=== PATIENT | male | born 1935 | race African-American/Black ===

== ENCOUNTER 2018-12-27 16:05 | Emergency (ER) | payer BC, MEDICAID ==
[~2018-12-27] VITALS: Ht 172.7 cm; Wt 69.0 kg
[2018-12-27] MEDS ORDERED: SODIUM CHLORIDE 0.9% 1,000 ML IV ONE (18:38)
[2018-12-27 19:07] LABS: BASOPHILS % 0.5 % (0.0-2.0); EOSINOPHILS % 2.4 % (0.0-5.0); HEMATOCRIT. 31.6 % (42.0-52.0); HEMOGLOBIN. 10.5 g/dL (14.0-18.0); LYMPHOCYTES % 17.3 % (20.0-50.0); MEAN CORPUSCULAR HEMOGLOBIN 31.2 pg (28.0-32.0); MEAN CORPUSCULAR VOLUME 93.7 fL (80.0-94.0); MEAN PLATELET VOLUME 6.3 fl (7.4-10.4); MONOCYTES % 7.1 % (2.0-8.0); NEUTROPHILS % 72.7 % (40.0-76.0); PLATELET 209 x1000/uL (130-400); RED BLOOD CELL COUNT 3.37 mill/uL (4.7-6.1); RED CELL DISTRIBUTION WIDTH 14.5 % (11.6-14.6)
[2018-12-27 19:09] LABS: CHLORIDE 106 mEq/L (98-107); INR 1.1
[2018-12-27 20:16] LABS: CLARITY URINE CLEAR (CLEAR); COLOR URINE YELLOW (YELLOW); KETONES URINE NEGATIVE (NEGATIVE); LEUKOCYTE ESTERASE URINE NEGATIVE (NEGATIVE); NITRITE URINE NEGATIVE (NEGATIVE); OCCULT BLOOD URINE NEGATIVE (NEGATIVE); PROTEIN URINE NEGATIVE (NEGATIVE)
[2018-12-27 21:15] VITALS: BP 100/70
== END 2018-12-27 21:15 | disposition home or self-care (01) ==
LOC: ER 16:05 → CANBEDREQ 12-28 00:30
DX: R55 Syncope and collapse (principal); E86.0 Dehydration; N28.9 Disorder of kidney and ureter, unspecified; F03.90 Unspecified dementia, unspecified severity, without behavioral disturbance, psychotic disturbance, mood disturbance, and anxiety; E11.9 Type 2 diabetes mellitus without complications
CPT/HCPCS: 36415; 70450; 71045; 80053; 81003; 82962; 85025; 85610; 93005; 99284; J7030

== ENCOUNTER 2021-07-27 14:41 | Inpatient (IN) | payer OTHER, MEDICAID ==
[~2021-07-27] VITALS: Ht 180.3 cm; Wt 79.5 kg
[~2021-07-27 14:41] MED LIST: HYDR-4009 PO; KETO5DRO80 EACHEYE
[2021-07-27] MEDS ORDERED: SODIUM CHLORIDE 0.9% 500 ML IV ONE (16:15)
[2021-07-27 16:23] LABS: BASOPHILS % 0.7 % (0.0-2.0); EOSINOPHILS % 4.8 % (0.0-5.0); HEMATOCRIT. 29.3 % (42.0-52.0); HEMOGLOBIN. 9.9 g/dL (14.0-18.0); MEAN CORPUSCULAR HEMOGLOBIN 31.7 pg (28.0-32.0); MEAN CORPUSCULAR VOLUME 93.4 fL (80.0-94.0); MEAN PLATELET VOLUME 6.6 fl (7.4-10.4); MONOCYTES % 12.7 % (2.0-8.0); NEUTROPHILS % 63.8 % (40.0-76.0); PLATELET 219 x1000/uL (130-400); RED BLOOD CELL COUNT 3.14 mill/uL (4.7-6.1); RED CELL DISTRIBUTION WIDTH 15.2 % (11.6-14.6)
[2021-07-27 16:32] LABS: CHLORIDE 109 mEq/L (98-107)
[2021-07-27 16:36] LABS: ETHANOL BLOOD < 10 mg/dL
[2021-07-27 22:30] VITALS: BP 95/53
[2021-07-28] VITALS (7 sets, daily range): BP systolic 71–114; BP diastolic 35–64
[2021-07-28] MEDS: DEXT 5%/0.45% NACL 1000ML 1,000 ML IV SCH ×2 (02:00→15:28)
[2021-07-28 06:51] LABS: BASOPHILS % 0.9 % (0.0-2.0); EOSINOPHILS % 7.6 % (0.0-5.0); HEMATOCRIT. 29.1 % (42.0-52.0); LYMPHOCYTES % 19.1 % (20.0-50.0); MEAN CORPUSCULAR HEMOGLOBIN 31.7 pg (28.0-32.0); MEAN CORPUSCULAR VOLUME 92.1 fL (80.0-94.0); MEAN PLATELET VOLUME 6.5 fl (7.4-10.4); MONOCYTES % 10.9 % (2.0-8.0); NEUTROPHILS % 61.5 % (40.0-76.0); PLATELET 213 x1000/uL (130-400); RED BLOOD CELL COUNT 3.16 mill/uL (4.7-6.1); RED CELL DISTRIBUTION WIDTH 15.4 % (11.6-14.6)
[2021-07-28 06:59] LABS: CHLORIDE 109 mEq/L (98-107)
[2021-07-28] MEDS: PANTOPRAZOLE SODIUM 40 MG/VIAL IV SCH (09:00)
[2021-07-28] MEDS ORDERED: ACETAMINOPHEN 325MG TABLET PO PRN (10:00)
[2021-07-28] MEDS ORDERED: ONDANSETRON HCL 4MG/2ML INJ IV PRN (10:00)
[2021-07-28] MEDS: BLOOD SUGAR DIAGNOSTIC STRIP TEST SCH ×3 (13:03→20:55)
[2021-07-28] MEDS ORDERED: LORAZEPAM 2MG/ML CPJ IV NR (16:15)
[2021-07-28] MEDS ORDERED: ENOXAPARIN 40MG/0.4ML SYR SUBCUT SCH (18:30)
[2021-07-29] VITALS (7 sets, daily range): BP systolic 88–106; BP diastolic 36–58
[2021-07-29] MEDS: DEXT 5%/0.45% NACL 1000ML 1,000 ML IV SCH ×2 (04:31→18:05)
[2021-07-29 06:11] LABS: CHLORIDE 108 mEq/L (98-107)
[2021-07-29 06:17] LABS: BASOPHILS % 0.9 % (0.0-2.0); EOSINOPHILS % 9.2 % (0.0-5.0); HEMATOCRIT. 29.1 % (42.0-52.0); HEMOGLOBIN. 9.8 g/dL (14.0-18.0); LYMPHOCYTES % 19.4 % (20.0-50.0); MEAN CORPUSCULAR HEMOGLOBIN 31.3 pg (28.0-32.0); MEAN PLATELET VOLUME 6.4 fl (7.4-10.4); MONOCYTES % 11.2 % (2.0-8.0); NEUTROPHILS % 59.3 % (40.0-76.0); PLATELET 212 x1000/uL (130-400); RED BLOOD CELL COUNT 3.12 mill/uL (4.7-6.1); RED CELL DISTRIBUTION WIDTH 15.6 % (11.6-14.6)
[2021-07-29] MEDS: BLOOD SUGAR DIAGNOSTIC STRIP TEST SCH ×4 (06:34→21:00)
[2021-07-29] MEDS: PANTOPRAZOLE SODIUM 40 MG/VIAL IV SCH (09:50)
[2021-07-29] MEDS ORDERED: LORAZEPAM 0.5MG TABLET PO NR (15:00)
[2021-07-29] MEDS ORDERED: GADOTERATE MEGLUMINE 5 MMOL/10 ML VIAL IV ONE (15:52)
[2021-07-29] MEDS: ENOXAPARIN 30MG/0.3ML SYR SUBCUT SCH (18:06)
[2021-07-29 20:24] LABS: VITAMIN B12 SERUM 1504 pg/mL (211-911)
[2021-07-30 04:00] VITALS: BP 90/47
[2021-07-30] MEDS: BLOOD SUGAR DIAGNOSTIC STRIP TEST SCH ×4 (07:18→20:50)
[2021-07-30 08:00] VITALS: BP 97/37
[2021-07-30] MEDS: DEXT 5%/0.45% NACL 1000ML 1,000 ML IV SCH ×2 (08:48→20:53)
[2021-07-30] MEDS: FAMOTIDINE 20MG/2ML VIAL IV SCH (08:48)
[2021-07-30 12:00] VITALS: BP 93/47
[2021-07-30 16:00] VITALS: BP 91/40
[2021-07-30] MEDS: ENOXAPARIN 30MG/0.3ML SYR SUBCUT SCH (17:00)
[2021-07-30 20:00] VITALS: BP 102/76
[2021-07-31] VITALS: BP 93/55
[2021-07-31 04:00] VITALS: BP 91/45
[2021-07-31] MEDS: BLOOD SUGAR DIAGNOSTIC STRIP TEST SCH ×4 (06:18→21:00)
[2021-07-31 08:00] VITALS: BP 93/46
[2021-07-31] MEDS: FAMOTIDINE 20MG/2ML VIAL IV SCH (09:42)
[2021-07-31] MEDS: DEXT 5%/0.45% NACL 1000ML 1,000 ML IV SCH (09:42)
[2021-07-31 12:00] VITALS: BP 93/43
[2021-07-31 13:11] LABS: FOLICLE STIMULATING HORMONE 6.1 mIU/mL (1.5-12.4); PROLACTIN 4.5 ng/mL (4.0-15.2)
[2021-07-31 16:00] VITALS: BP 91/45
[2021-07-31] MEDS: ENOXAPARIN 30MG/0.3ML SYR SUBCUT SCH (17:00)
[2021-07-31 20:00] VITALS: BP 111/62
[2021-08-01] MEDS: DEXT 5%/0.45% NACL 1000ML 1,000 ML IV SCH ×2 (03:00→12:40)
[2021-08-01] MEDS: BLOOD SUGAR DIAGNOSTIC STRIP TEST SCH ×3 (06:01→17:10)
[2021-08-01 08:00] VITALS: BP 105/68
[2021-08-01] MEDS: FAMOTIDINE 20MG/2ML VIAL IV SCH (09:00)
[2021-08-01 12:00] VITALS: BP 98/60
[2021-08-01 16:00] VITALS: BP 95/61
[2021-08-01] MEDS: ENOXAPARIN 30MG/0.3ML SYR SUBCUT SCH (17:00)
[2021-08-01 19:29] VITALS: BP 106/58
== END 2021-08-01 20:10 | disposition home health service (06) | DRG 73 ==
LOC: ER 14:41 → EDBEDREQTM 19:30 → EDBEDREQ 19:30 → ENRESERV 21:04 → 8WST 22:27
PROVIDERS: ADMIT Internal Medicine; ATTEND Internal Medicine
DX: G90.9 Disorder of the autonomic nervous system, unspecified (principal); E43 Unspecified severe protein-calorie malnutrition; J98.11 Atelectasis; G93.49 Other encephalopathy; G82.20 Paraplegia, unspecified; D35.2 Benign neoplasm of pituitary gland; D64.9 Anemia, unspecified; E87.8 Other disorders of electrolyte and fluid balance, not elsewhere classified; F03.90 Unspecified dementia, unspecified severity, without behavioral disturbance, psychotic disturbance, mood disturbance, and anxiety; E11.9 Type 2 diabetes mellitus without complications; Z20.822 Contact with and (suspected) exposure to COVID-19; M19.90 Unspecified osteoarthritis, unspecified site; I87.2 Venous insufficiency (chronic) (peripheral); Z79.899 Other long term (current) drug therapy; Z68.24 Body mass index [BMI] 24.0-24.9, adult; Z87.81 Personal history of (healed) traumatic fracture
CPT/HCPCS: 36415; 70553; 71045; 72170; 80048; 80053; 80320; 82024; 82533; 82607; 82962; 83001; 83605; 83880; 84146; 84443; 84484; 85025; 87426; 93005; 93306; 93880; 99291; A9577; C1893; C9113; J1650; J3490; J7040; G0480

== ENCOUNTER 2021-08-02 18:11 | Inpatient (IN) | payer OTHER, MEDICAID ==
[~2021-08-02] VITALS: Ht 188 cm; Wt 83.0 kg
[2021-08-02 19:05] LABS: BASOPHILS % 0.7 % (0.0-2.0); EOSINOPHILS % 5.1 % (0.0-5.0); HEMOGLOBIN. 10.3 g/dL (14.0-18.0); LYMPHOCYTES % 15.7 % (20.0-50.0); MEAN CORPUSCULAR HEMOGLOBIN 31.6 pg (28.0-32.0); MEAN PLATELET VOLUME 6.2 fl (7.4-10.4); MONOCYTES % 14.3 % (2.0-8.0); NEUTROPHILS % 64.2 % (40.0-76.0); PLATELET 226 x1000/uL (130-400); RED BLOOD CELL COUNT 3.26 mill/uL (4.7-6.1); RED CELL DISTRIBUTION WIDTH 15.4 % (11.6-14.6)
[2021-08-02 19:08] LABS: CHLORIDE 107 mEq/L (98-107)
[2021-08-03 08:00] VITALS: BP 97/57
[2021-08-03 11:00] VITALS: BP 107/75
[2021-08-03] MEDS ORDERED: DOCUSATE SODIUM 100MG CAPSULE PO PRN (11:15)
[2021-08-03] MEDS ORDERED: NALOXONE HCL 0.4MG/ML VIAL IV PRN (11:15)
[2021-08-03] MEDS ORDERED: IPRATROPIUM/ALBUTEROL 0.5-3(2.5)MG/3ML NEB NEB PRN (11:15)
[2021-08-03] MEDS ORDERED: ACETAMINOPHEN 325MG TABLET PO PRN (11:15)
[2021-08-03] MEDS ORDERED: LORAZEPAM 0.5MG TABLET PO PRN (11:15)
[2021-08-03] MEDS ORDERED: ACETAMINOPHEN 650MG SUPP PR PRN (11:15)
[2021-08-03] MEDS ORDERED: DIPHENHYDRAMINE 50MG/ML VIAL IV PRN (11:15)
[2021-08-03] MEDS ORDERED: MAGNESIUM/ALUMINUM HYDROXIDE/SIMETHICONE 30ML UDC PO PRN (11:15)
[2021-08-03] MEDS ORDERED: ONDANSETRON HCL 4MG/2ML INJ IV PRN (11:15)
[2021-08-03] MEDS ORDERED: NA PHOS,M-B/NA PHOS,DI-BA ENEMA 118ML PR PRN (11:15)
[2021-08-03] MEDS: DEXT 5%/0.45% NACL 1000ML 1,000 ML IV SCH ×2 (11:15→23:46)
[2021-08-03] MEDS ORDERED: DEXTROSE 50% WATER 50ML SYRINGE IV PRN (11:15)
[2021-08-03] MEDS ORDERED: CEFTRIAXONE 1 G PREMIX 50 ML IV SCH (11:15)
[2021-08-03 12:00] VITALS: BP 107/75
[2021-08-03 12:29] LABS: CHLORIDE 105 mEq/L (98-107)
[2021-08-03 12:33] LABS: INR 1.1; PROTHROMBIN TIME 12.2 sec (9.6-11.0)
[2021-08-03] MEDS: INSULIN LISPRO 100 UNITS/ML SUBCUT SCH ×3 (12:40→21:00)
[2021-08-03] MEDS: MIDODRINE HCL 5MG TABLET PO SCH ×3 (13:00→17:09)
[2021-08-03] MEDS: BLOOD SUGAR DIAGNOSTIC STRIP TEST SCH ×3 (13:08→21:00)
[2021-08-03] MEDS: CEFTRIAXONE 1,000 MG in DEXTROSE 5% WATER 50 ML IV SCH (14:15)
[2021-08-03 16:00] VITALS: BP 110/75
[2021-08-03 16:30] LABS: CREATINE KINASE 70 IU/L (39-308)
[2021-08-03 16:31] LABS: CREATINE KINASE MB FRACTION 3.2 ng/mL (0.5-3.6)
[2021-08-03 18:33] LABS: BASOPHILS % 0.8 % (0.0-2.0); EOSINOPHILS % 5.4 % (0.0-5.0); HEMATOCRIT. 31.2 % (42.0-52.0); HEMOGLOBIN. 10.4 g/dL (14.0-18.0); LYMPHOCYTES % 16.4 % (20.0-50.0); MEAN CORPUSCULAR HEMOGLOBIN 31.1 pg (28.0-32.0); MEAN PLATELET VOLUME 6.4 fl (7.4-10.4); MONOCYTES % 12.6 % (2.0-8.0); NEUTROPHILS % 64.8 % (40.0-76.0); PLATELET 260 x1000/uL (130-400); RED BLOOD CELL COUNT 3.35 mill/uL (4.7-6.1); RED CELL DISTRIBUTION WIDTH 15.6 % (11.6-14.6)
[2021-08-03 18:36] LABS: CHLORIDE 107 mEq/L (98-107)
[2021-08-03 20:00] VITALS: BP 126/81
[2021-08-03] MEDS: FAMOTIDINE 20MG TABLET PO SCH (23:37)
[2021-08-04] VITALS: BP 93/48
[2021-08-04 02:02] LABS: CREATINE KINASE 61 IU/L (39-308)
[2021-08-04 02:03] LABS: CREATINE KINASE MB FRACTION 3.3 ng/mL (0.5-3.6)
[2021-08-04 04:00] VITALS: BP 92/55
[2021-08-04] MEDS: INSULIN LISPRO 100 UNITS/ML SUBCUT SCH ×4 (07:14→21:00)
[2021-08-04] MEDS: BLOOD SUGAR DIAGNOSTIC STRIP TEST SCH ×4 (07:14→21:00)
[2021-08-04 07:30] LABS: CHLORIDE 106 mEq/L (98-107)
[2021-08-04 07:32] LABS: HEMATOCRIT. 28.9 % (42.0-52.0); MEAN CORPUSCULAR HEMOGLOBIN 31.7 pg (28.0-32.0); MEAN CORPUSCULAR VOLUME 91.8 fL (80.0-94.0); MEAN PLATELET VOLUME 6.4 fl (7.4-10.4); PLATELET 244 x1000/uL (130-400); RED BLOOD CELL COUNT 3.15 mill/uL (4.7-6.1); RED CELL DISTRIBUTION WIDTH 15.5 % (11.6-14.6)
[2021-08-04 08:00] VITALS: BP 99/56
[2021-08-04] MEDS: ASPIRIN 81MG EC TABLET PO SCH (09:33)
[2021-08-04] MEDS: MIDODRINE HCL 5MG TABLET PO SCH ×3 (09:34→16:28)
[2021-08-04 12:00] VITALS: BP 115/77
[2021-08-04] MEDS: CEFTRIAXONE 1,000 MG in DEXTROSE 5% WATER 50 ML IV SCH (12:09)
[2021-08-04] MEDS: DEXT 5%/0.45% NACL 1000ML 1,000 ML IV SCH (13:55)
[2021-08-04 16:00] VITALS: BP 87/59
[2021-08-04] MEDS: HYDROCODONE/ACETAMINOPHEN 5/325MG TABLET PO PRN (16:28)
[2021-08-04 18:15] LABS: PLATELET ESTIMATE NORMAL
[2021-08-04 20:00] VITALS: BP 106/53
[2021-08-04] MEDS: FAMOTIDINE 20MG TABLET PO SCH (21:00)
[2021-08-05] VITALS: BP 139/77
[2021-08-05] MEDS: DEXT 5%/0.45% NACL 1000ML 1,000 ML IV SCH (02:36)
[2021-08-05 04:00] VITALS: BP 104/46
[2021-08-05] MEDS: BLOOD SUGAR DIAGNOSTIC STRIP TEST SCH ×4 (07:10→21:57)
[2021-08-05] MEDS: INSULIN LISPRO 100 UNITS/ML SUBCUT SCH ×4 (07:40→21:00)
[2021-08-05 08:00] VITALS: BP 121/55
[2021-08-05] MEDS: ASPIRIN 81MG EC TABLET PO SCH ×2 (09:00→09:10)
[2021-08-05] MEDS: MIDODRINE HCL 5MG TABLET PO SCH ×3 (09:00→17:00)
[2021-08-05] MEDS ORDERED: HYDR-4001 MT (10:26)
[2021-08-05] MEDS ORDERED: MIDO10TA MT (10:26)
[2021-08-05 12:00] VITALS: BP 109/61
[2021-08-05] MEDS: CEFTRIAXONE 1,000 MG in DEXTROSE 5% WATER 50 ML IV SCH (12:46)
[2021-08-05 16:00] VITALS: BP 130/62
[2021-08-05] MEDS: HYDROCODONE/ACETAMINOPHEN 5/325MG TABLET PO PRN (19:31)
[2021-08-05 20:00] VITALS: BP 106/62
[2021-08-05] MEDS: FAMOTIDINE 20MG TABLET PO SCH (21:00)
[2021-08-06] VITALS: BP 101/49
[2021-08-06] MEDS: BLOOD SUGAR DIAGNOSTIC STRIP TEST SCH ×4 (06:45→20:00)
[2021-08-06] MEDS: INSULIN LISPRO 100 UNITS/ML SUBCUT SCH ×4 (06:46→20:00)
[2021-08-06 08:00] VITALS: BP 99/68
[2021-08-06] MEDS: ASPIRIN 81MG EC TABLET PO SCH ×2 (09:00→09:42)
[2021-08-06] MEDS: MIDODRINE HCL 5MG TABLET PO SCH ×3 (09:42→17:02)
[2021-08-06 12:00] VITALS: BP 100/51
[2021-08-06] MEDS: CEFTRIAXONE 1,000 MG in DEXTROSE 5% WATER 50 ML IV SCH (13:46)
[2021-08-06 16:00] VITALS: BP 98/50
[2021-08-06] MEDS: HYDROCODONE/ACETAMINOPHEN 5/325MG TABLET PO PRN (18:27)
[2021-08-06] MEDS: FAMOTIDINE 20MG TABLET PO SCH (19:59)
[2021-08-06 20:00] VITALS: BP 139/83
[2021-08-07] VITALS: BP 100/79
[2021-08-07 04:00] VITALS: BP 99/45
[2021-08-07] MEDS: INSULIN LISPRO 100 UNITS/ML SUBCUT SCH ×4 (06:11→21:00)
[2021-08-07] MEDS: BLOOD SUGAR DIAGNOSTIC STRIP TEST SCH ×4 (06:11→21:00)
[2021-08-07 07:41] LABS: HEMATOCRIT 26.5 % (42.0-52.0); HEMOGLOBIN 9.1 g/dL (14.0-18.0); MEAN CORPUSCULAR HEMOGLOBIN 31.5 pg (28.0-32.0); PLATELET 213 x1000/uL (130-400); RED BLOOD CELL COUNT 2.88 mill/uL (4.7-6.1); RED CELL DISTRIBUTION WIDTH 15.3 % (11.6-14.6)
[2021-08-07 07:54] LABS: CHLORIDE 105 mEq/L (98-107)
[2021-08-07 08:00] VITALS: BP 100/55
[2021-08-07] MEDS: MIDODRINE HCL 5MG TABLET PO SCH ×3 (10:00→17:00)
[2021-08-07] MEDS: ASPIRIN 81MG EC TABLET PO SCH (10:00)
[2021-08-07 12:00] VITALS: BP 109/47
[2021-08-07] MEDS: CEFTRIAXONE 1,000 MG in DEXTROSE 5% WATER 50 ML IV SCH (14:06)
[2021-08-07 16:00] VITALS: BP 100/55
[2021-08-07 20:00] VITALS: BP 140/66
[2021-08-07] MEDS: FAMOTIDINE 20MG TABLET PO SCH (21:00)
[2021-08-08] VITALS: BP 90/42
[2021-08-08] MEDS: BLOOD SUGAR DIAGNOSTIC STRIP TEST SCH (06:44)
[2021-08-08] MEDS: INSULIN LISPRO 100 UNITS/ML SUBCUT SCH (06:44)
[2021-08-08 09:24] VITALS: BP 90/42
== END 2021-08-08 11:00 | disposition hospice, home (50) | DRG 314 ==
LOC: ER 18:11 → MICUSO 08-03 00:20 → EDBEDREQTM 08-03 00:26 → EDBEDREQDT 08-03 00:26 → EDBEDREQ 08-03 00:26 → MICUSO 08-03 07:46 → 8WST 08-03 07:46
PROVIDERS: ADMIT Internal Medicine; ATTEND Internal Medicine
DX: I95.9 Hypotension, unspecified (principal); E43 Unspecified severe protein-calorie malnutrition; G82.20 Paraplegia, unspecified; G93.40 Encephalopathy, unspecified; D35.2 Benign neoplasm of pituitary gland; D64.9 Anemia, unspecified; E11.65 Type 2 diabetes mellitus with hyperglycemia; M19.90 Unspecified osteoarthritis, unspecified site; I10 Essential (primary) hypertension; G30.9 Alzheimer's disease, unspecified; F02.80 Dementia in other diseases classified elsewhere, unspecified severity, without behavioral disturbance, psychotic disturbance, mood disturbance, and anxiety
CPT/HCPCS: 36415; 71045; 80048; 80053; 82550; 82553; 82962; 83880; 84443; 84484; 85025; 85027; 93005; 93970; 97161; 99285; C1893; J0696; J7060